=== PATIENT | male | born 1970 | race Caucasian/White ===

== ENCOUNTER 2024-12-31 14:54 | Emergency (ER) | payer OTHER, SELFPAY ==
--- OUTSIDE RECORDS SUMMARY | 2017-06-27 05:00 | XMS_ITS | Continuity of Care Document ---
Author Organization [facility] Address [address] [place] [address] Phone Care Team Providers Care Residential Leasing Manager Name Role Phone Sumit Mcdonald Unavailable Unavailable Allergies, Adverse Reactions, Alerts Substance Reaction Status Criticality No Known Allergies Active No Inform ation Medications Medication Instructions Dosage Effective Dates (start - stop) Status Comments Effexor XR 37.5 mg capsule,extended release take 1 capsule by oral route every day with food 37.5 MG - Active gabapentin 300 mg capsule take 1 capsule by oral route 3 times every day 300 MG - Active Procedures Procedure Date Resin Composite 1s; Posterior 8 Oral Hygiene Instruction Resin Composite 3s; Posterior 8 Oral Hygiene Instruction Prophylaxis Adult Tobacco Counseling Oral Hygiene Instruction Comp Oral Eval New/estab Patient 2017 Oral Hygiene Instruction Initial Oral Exam Limited Oral Eval Intraoral-periapical 1st Film 6 Bitewig-single Film Extract; Erupted Th/exposted Rt 016 Advance Directives Directive Yes / No Effective Date File Name No Information Encounters Encounter Description Practice Location Reason(s) For Visit Diagnoses Date Provider Providers Copied on Encounter [facility], [address] [place] [address], [id number] , [place] tel:[phone] Dental Clinic Encounter for screening for dental disorders 8 Harry Arana. [address] [place], [place], [id number], [place]. tel:[phone] [facility], [address] [place] [address], [id number] , [place] tel:[phone] Dental Clinic filling (chief complaint) Encounter for screening for dental disorders 8 Chelo DMD Sushaen. [address] [place], [address], [place]. tel:[phone] [facility], [address] [place] [address], [id number] , [place] [phone] Dental Clinic prophy (chief complaint) Encounter for screening for dental disorders 0 8 Sivkgncecyan DMD Deepasulochana. [address] [place], [address], [place]. tel:[phone] [facility], [address] [place] [address], [id number] , [place] [phone] Dental Clinic dental new (chief complaint) Encounter for screening for dental disorders 8 Sivasanteaaganesan DMD Deepasulochana. [address] [place] [address], [id number], [place]. tel:[phone] [facility], [address] [place] [address], [id number] , [place] tel:[phone] Dental Clinic Encounter for screening for dental disorders 6 Best DMD Luzma. [address] [place] [address], [id number], [place]. tel:[phone] Family History Family Member Type Diagnosis Age At Onset Father Problem (finding) Alive and well Mother Problem (finding) Alive and well Payers Payer name Insurance type Covered green party ID Authoriza ticarolann(s) Self Pay Cap 09 Social History Type Description Quantity Date Captured Comments Alcohol Use Details No Caffeine Use Details coffee and soda 2 cups per day Tobacco Use Status Smoking Status Current some day smoker 018 Sex Male Sexual Orientation Straight or heterosexual Gender Identity Male Vital Signs Date / Time: Height Weight BMI Pulse Rate Blood Pressure Temperature Respiratory Rate Body Surface Area Head Circumference Head Circ. Percentile Wt./Rakan. Percentile BMI percentile Pulse Ox Inhaled Ox 9:30 AM 75 /min 105/71 mm[Hg] Chief Complaint And Reason For Visit No Information Reason For Referral Reason For Referral No Information History Of Present Illness Encounter Date Complaint History Of Prese nt Illness filling continue with tr eatment prophy prophy dental new dental new Functional Status Date Functional Assessmen t No Information Instructions Date Instruction Additional Infor mation No Information Assessments Type Assessment Date assessment Encounter for screening for dent al disorders Patient Care Teams Name Effective Dates (start - stop) Status Members No Information
[2024-12-31 15:04] VITALS: BP 156/88; PULSE 70; TEMP 37.1; O2SAT 99; BMI 30.7
--- NOTE | 2024-12-31 15:16 | ED.GENADUL1 ---
HPI HPI - General Adult General Chief complaint: Skin/Abscess/Foreign Body Stated complaint: LOCALIZED SWELLING - NECK Time Seen by Provider: 12/31/24 14:59 Source: patient and family Mode of arrival: walk-in Limitations: no limitations History of Present Illness HPI narrative: 54-year-old male presents for a painful swollen area on the right side of his neck. It has been draining and he was diagnosed with an abscess. He was prescribed Keflex and Keflex only. No fever or vomiting or difficulty breathing or swallowing. He is supposed to be [facility] to a dental [facility]. Related Data Home Medications ?Medication ?Instructions ?Recorded ?Confirmed cephalexin 500 mg capsule 500 mg PO Q6H 12/31/24 12/31/24 fluoxetine 10 mg capsule 10 mg PO DAILY 12/31/24 12/31/24 gabapentin 300 mg capsule 300 mg PO BID 12/31/24 12/31/24 naproxen 500 mg tablet 500 mg PO DAILY PRN pain 12/31/24 12/31/24 Previous Rx's ?Medication ?Instructions ?Recorded acetaminophen 300 mg-codeine 30 mg 1 tab PO Q6H PRN pain 5 days #20 12/31/24 tablet tabs ibuprofen 800 mg tablet 800 mg PO Q8H PRN pain #20 tabs 12/31/24 sulfamethoxazole 800 1 tab PO BID 14 days #28 tabs 12/31/24 mg-trimethoprim 160 mg tablet (Bactrim DS) Allergies Allergy/AdvReac Type Severity Reaction Status Date / Time No Known Drug Allergies Allergy Verified 12/31/24 15:02 Opioid HPI Opioid Management Most Recent Opioid Data: Last Pain Scale 5 Today, 15:04 Review of Systems ROS Narrative A ten point review of systems is negative except as noted above. PFSH PFSH Social History Little interest or pleasure in doing things: not at all Feeling down, depressed, or hopeless: not at all Exam Narrative Exam Narrative: Nurses note and vital signs reviewed and patient is not hypoxic. General:The patient appears well and in no apparent distress.Patient is resting comfortably on cart. Skin:Warm, dry, no pallor noted.There is no rash noted. Head:Normocephalic, atraumatic. On the right side of his neck is an erythematous swollen area with an opening and a small amount of purulent drainage. It is inferior to the anterior esparza of the auricle. Eye: Normal conjunctiva, no drainage Ears, Nose, Mouth, and Throat: oral mucosa is moist. Nares patent. He is handling his oral secretions well. Speech is normal. Cardiovascular:Regular Rate and Rhythm Respiratory:Patient is in no distress, no accessory muscle use, lungs are clear to auscultation, no wheezing, rales or rhonchi Back:non-tender GI: Soft and nontender Musculoskeletal: The patient has no evidence of calf tenderness, no pitting edema, symmetrical pulses noted bilaterally Neurological:A&O, normal speech Psychiatric:Cooperative Constitutional Vital Signs, click to edit/add: Last Vital Signs Temp 98.7 F 12/31/24 15:04 Pulse 70 12/31/24 15:04 Resp 16 12/31/24 15:04 BP 156/88 H 12/31/24 15:04 Pulse Ox 99 12/31/24 15:04 O2 Del Method Room Air 12/31/24 15:04 Course Vital Signs Vital signs: Vital Signs Temperature 98.7 F 12/31/24 15:04 Pulse Rate 70 12/31/24 15:04 Respiratory Rate 16 12/31/24 15:04 Blood Pressure 156/88 H 12/31/24 15:04 Pulse Oximetry 99 12/31/24 15:04 Oxygen Delivery Method Room Air 12/31/24 15:04 Temperature 98.7 F 12/31/24 15:04 Pulse Rate 70 12/31/24 15:04 Respiratory Rate 16 12/31/24 15:04 Blood Pressure 156/88 H 12/31/24 15:04 Pulse Oximetry 99 12/31/24 15:04 Oxygen Delivery Method Room Air 12/31/24 15:04 Medical Decision Making [facility] Narrative Medical decision making narrative: Patient has a draining abscess. Due to its location I do not feel that incision and drainage in the emergency department would be appropriate. PA system is already arranging for him to see a general surgeon and this was encouraged. I will add Bactrim to the Keflex he is already on and I have prescribed him Tylenol 3 and ibuprofen as well. Treatment diagnosis and follow-up were discussed with the patient. Differential Diagnosis Differential Diagnosis: Abscess, cellulitis Discharge Plan Discharge Chief Complaint: Skin/Abscess/Foreign Body Clinical Impression: Abscess, neck Patient Disposition: Home, Self-Care Time of Disposition Decision: 15:12 Condition: Good Mode of Transportation: Private Vehicle Prescriptions / Home Meds: New sulfamethoxazole-trimethoprim [Bactrim DS] 800-160 mg tablet 1 tab PO BID 14 Days Qty: 28 0RF ibuprofen 800 mg tablet 800 mg PO Q8H PRN (Reason: pain) Qty: 20 0RF acetaminophen-codeine 300-30 mg tablet 1 tab PO Q6H PRN (Reason: pain) 5 Days Qty: 20 0RF No Action fluoxetine 10 mg capsule 10 mg PO DAILY gabapentin 300 mg capsule 300 mg PO BID cephalexin 500 mg capsule 500 mg PO Q6H Patient Comments: Started on 12/2024 naproxen 500 mg tablet 500 mg PO DAILY PRN (Reason: pain) Print Language: Nauruan Instructions: Abscess (ED) Additional Instructions: Please see your surgeon as soon as possible for evaluation of this neck abscess.
[2024-12-31] MEDS: SULFAMETHOXAZOLE/TRIMETHOPRIM 800-160 MG TABLET 1 TAB PO (15:27)
--- OUTSIDE RECORDS SUMMARY | 2024-12-31 15:35 | XMS_ITS | Patient Health Record ---
Author Organization [facility] Address [address] [place] [address] [place] [address] Care Team Providers Care Cartography Professor Name Role Phone David George Primary Care Provider Unavail able Willioz Kevon Unavailable [phone] Reason For Referral No Information Medications Medication SIG (Take, Route, Fr equency, Duration) Notes Start Date End Date Status Power Step Orthotics as directed 03/10/2018 Active Effexor XR 150 MG Orally Ac tive Gabapentin 300 MG 1 capsule Orally Thr ee times a day Active Social History Tobacco Use: Social History Observation Description Date Details (start date - stop date) Current Smoker NA - NA tobacco use Question Answer Notes Patient is a: current smoker Problems Problem Type SNOMED Code ICD Code Onset Dates Problem Status W/U Status Risk Notes Problem Pain in right foot (457407063512321 ) Pain in right foot (M79.671) Active confirmed Problem Pain in left foot (076566107369466 ) Pain in left foot (M79.672) Active confirmed Problem Plantar fascial fibromatosis (65438713) Plantar fascial fibromatosis (M72.2) Active confirmed Plan Of Treatment No Information Insurance Providers Payer Name Payer Address Payer Phone Subscriber Number Group Number Insured Name Patient Relationship to Insured Coverage Start Date Coverage End Date [employer] [address] [place] [address] [id number] ZofiaMauri Self - patient is the insured Medical (General) History Medical History History ICD Code depression hearing problems bulging disc/sciatic nerve pain
--- OUTSIDE RECORDS SUMMARY | 2024-12-31 15:35 | XMS_ITS | Continuity of Care Document ---
Author Organization [facility] Address [address] [place] [address] Phone [phone] Care Team Providers Care Raw Stock Machine Feeder Name Role Phone Speedy Callahan MD Care Team Information Budget Specialist U navailable Allergies and adverse reactions Description No Known Drug Allergies Medications Active Medications SIG Qnty Indications Ordering Provider Date [id number] Capsules 1 qd PO Unkno wn Sertraline [id number] Tablets 2 Tabs qd Un known Hydroxyzine [id number] Tablets prn Un known Vital Signs Date Vital Result Comment 04/09/2014 10:55am Weight 173.00 lb Weight 78.473 kg Results Test Acquired Date Facility Test Result H/L [facility] 04/12/2014 Left Diagnosis [facility] <SEE NOTE> 1 Rectum Diagnosis [facility] <SEE NOTE> 2 Pathology Report SEE IMAGE 1 Diagnosis Summary : Fragments of colonic mucosa with no pathologic findings. MicroScopic Description:No evidence of microscopic colitis, cryptitis, crypt abscesses, granulomas or dysplasia. Grossing Description: Left Received in formalin are multiple fragments of vega soft tissue measuring 2.0 x 0.5 x 0.1 cm in aggregate. The specimen is submitted entirely in a single cassette. 2 Diagnosis Summary : Hyperplastic Polyp of rectum. Grossing Description: Rectum Received in formalin is a single irregular fragment of vega soft tissue measuring 0.3 x 0.3 x 0.2 cm. The specimen is entirely submitted in a single cassette. Electronically signed by : Dr.Liu Meyers on :04/15/2014 15:03:53
--- NOTE | 2024-12-31 15:36 | PC.NURSE ---
pt presents to ED with abscess on right side of neck that started draining today.
== END 2024-12-31 15:38 | disposition home or self-care (01) ==
LOC: ER 15:34
PROVIDERS: Emergency Provider Emergency Medicine
DX: L02.11 Cutaneous abscess of neck (principal); R22.1 Localized swelling, mass and lump, neck
CPT/HCPCS: 99283